=== PATIENT | female | born 1975 | race Caucasian/White ===

== ENCOUNTER 2020-03-24 15:00 | Outpatient (CLI) | payer OTHER, SELFPAY ==
[2020-03-24 16:12] LABS: Thyroid Stimulating Hormone 2.14 uIU/mL (0.27-4.20)
== END 2020-03-24 15:01 | disposition home or self-care (01) ==
LOC: LAB 15:04
PROVIDERS: PCP Nurse Practitioner; Visit Provider Internal Medicine Cardiovascular Disease
DX: R00.2 Palpitations (principal)
CPT/HCPCS: 84443

== ENCOUNTER 2020-04-20 11:36 | Outpatient (CLI) | payer OTHER, SELFPAY ==
--- NOTE | 2020-04-20 11:43 | MM_ITS ---
WS: [id number] LEFT DIGITAL MAMMOGRAPHY WITH CAD CLINICAL INFORMATION: LT BREAST LUM No definite lump felt today. Pain and soreness left breast with itching COMPARISON: 12 17,019 and 6 20,016 TECHNIQUE: 8 views of the left breast were obtained. FINDINGS: Breast implants. The left breast is composed of heterogeneous fibroglandular density tissue, which can limit the detec tion of small underlying mass lesions. Palpable marker at the areola. Dense underlying breast tissue at the 12:00 position similar to the prior examinations. No well-circumscribed abnormalities. Ultraso und is pending. ULTRASOUND BREAST LEFT TECHNIQUE: Ultrasound left breast focused area of concern. CLINICAL INFORMATION: LT BREAST LUMP COMPARISON: None. FINDINGS: Ultrasound left breast at the 12:00 position left areola. A few hypoechoic subcentimeter cystic appea ring lesions a few with internal debris calcifications. Largest measure approximately 3 mm findings a re probably benign and Recommend 6 month follow-up to confirm stability. MM/[place] [id number] IMPRESSION: BI-RADS: 3-Probably Benign FOLLOW UP: 6 Month Follow-up RECOMMEND 6 MONTH FOLLOW-UP LEFT DIAGNOSTIC MAMMOGRAPHY AND ULTRASOUND..
--- NOTE | 2020-04-20 12:17 | US_ITS ---
WS: [id number] LEFT DIGITAL MAMMOGRAPHY WITH CAD CLINICAL INFORMATION: LT BREAST LUM No definite lump felt today. Pain and soreness left breast with itching COMPARISON: 12 17,019 and 6 20,016 TECHNIQUE: 8 views of the left breast were obtained. FINDINGS: Breast implants. The left breast is composed of heterogeneous fibroglandular density tissue, which can limit the detec tion of small underlying mass lesions. Palpable marker at the areola. Dense underlying breast tissue at the 12:00 position similar to the prior examinations. No well-circumscribed abnormalities. Ultraso und is pending. ULTRASOUND BREAST LEFT TECHNIQUE: Ultrasound left breast focused area of concern. CLINICAL INFORMATION: LT BREAST LUMP COMPARISON: None. FINDINGS: Ultrasound left breast at the 12:00 position left areola. A few hypoechoic subcentimeter cystic appea ring lesions a few with internal debris calcifications. Largest measure approximately 3 mm findings a re probably benign and Recommend 6 month follow-up to confirm stability. US/US breast LT limited* [id number] IMPRESSION: BI-RADS: 3-Probably Benign FOLLOW UP: 6 Month Follow-up RECOMMEND 6 MONTH FOLLOW-UP LEFT DIAGNOSTIC MAMMOGRAPHY AND ULTRASOUND..
== END 2020-04-20 11:37 | disposition home or self-care (01) ==
LOC: RADSHAW 11:39
PROVIDERS: PCP Nurse Practitioner; Visit Provider Nurse Practitioner
DX: N63.25 Unspecified lump in the left breast, overlapping quadrants (principal)
CPT/HCPCS: 76642; 77065

== ENCOUNTER 2020-04-20 11:42 | Outpatient (CLI) | payer OTHER, SELFPAY ==
--- NOTE | 2020-04-20 12:45 | USCV_ITS ---
Tara Singh Age: 44 Gender: F : 1975 Exam Date: 04/20/2020 12:39 Ordering Phys: Malika Velez MD ([email or web address]) Technologist: Aye Laws Exam Location: [facility] [place] Indication: LVOT/PASP/DIASTOLIC DYSFUNCTION BP: 110 / 73 HR: 64 Rhythm: Sinus Technical Quality: artifact due to implants MEASUREMENTS (Male / Female) Normal Values 2D ECHO LV Diastolic Diameter PLAX 3.8 cm 4.2 - 5.9 / 3.9 - 5.3 cm LV Systolic Diameter PLAX 2.3 cm LV Chamber Size 2.9 cm IVS Diastolic Thickness 1.1 cm 0.6 - 1.0 / 0.6 - 0.9 cm IVS Systolic Thickness 1.5 cm LVPW Diastolic Thickness 1.3 cm 0.6 - 1.0 / 0.6 - 0.9 cm LVPW Systolic Thickness 2.1 cm RV Chamber Size 2.4 cm LVOT Diameter 2.0 cm LV Ejection Fraction 2D Teich 71.8 % LV Ejection Fraction MOD 2C 70.8 % LV Ejection Fraction 2C AL 70.8 % LA Diameter 4.0 cm LA Width 3.1 cm LA Height 3.3 cm RA Width 2.4 cm RA Height 2.9 cm Aorta at Sinotubular Diameter 2.5 cm M-MODE LV Diastolic Diameter MM 3.6 cm 4.2 - 5.9 / 3.9 - 5.3 cm LV Systolic Diameter MM 2.6 cm LV Ejection Fraction MM Teich 52.7 % IVS Diastolic Thickness MM 0.9 cm 0.6 - 1.0 / 0.6 - 0.9 cm IVS Systolic Thickness MM 1.0 cm LVPW Diastolic Thickness MM 0.9 cm 0.6 - 1.0 / 0.6 - 0.9 cm LVPW Systolic Thickness MM 1.1 cm Aortic Annulus Diameter 2.2 cm LA Ao Ratio MM 1.8 MV E Point Septal Separation 0.3 cm DOPPLER AV Peak Velocity 114.0 cm/s LVOT Peak Velocity 81.0 cm/s AV Area Cont Eq vti 2.4 cm squared AV Area Cont Eq pk 2.3 cm squared MV Area PHT 3.9 cm squared Mitral E to A Ratio 1.7 MV E' Velocity 14.0 cm/s Mitral E to MV E' Ratio 5.1 Mitral E to LV E' Lateral Ratio 5.2 Mitral E to LV E' Septal Ratio 5.0 TR Peak Velocity 260.0 cm/s TR Peak Gradient 27.0 mmHg TV Peak E Velocity 51.0 cm/s Right Atrial Pressure 3.0 mmHg Pulmonary Artery Systolic Pressu 30.0 mmHg PV Peak Velocity 83.0 cm/s RV Acceleration Time 0.2 s RV Ejection Time 0.4 s RV AcT/ET 0.4 FINDINGS Left Ventricle Normal left ventricular size, systolic function and wall thickness, no regional wall motion abnormalities. Left ventricular ejection fraction is estimated at 60 %. Normal diastolic filling pattern. Right Ventricle The right ventricle is normal in size and function. Right Atrium The right atrium is normal in size. Left Atrium The left atrium is normal in size. Mitral Valve Structurally normal mitral valve without significant stenosis or prolapse. There is no mitral regurgitation. Aortic Valve Structurally normal aortic valve without significant sclerosis or stenosis. There is no aortic regurgitation. Tricuspid Valve Structurally normal tricuspid valve without significant stenosis or regurgitation. Pulmonary artery systolic pressure is normal. Pulmonic Valve Structurally normal pulmonic valve without significant stenosis. There is no pulmonic regurgitation. Pericardium Normal pericardium without effusion. Aorta Normal ascending aorta dimension. CONCLUSIONS 1-Normal left ventricular size, systolic function and wall thickness, no regional wall motion abnormalities. Left ventricular ejection fraction is estimated at 60 %. Normal diastolic filling pattern. 2-No significant valve abnormalities. 3-There is no pericardial effusion. 4-Pulmonary artery systolic pressure is within normal limits. 5-Right atrial pressure is around 5 mm of mercury. 6-There are no prior echocardiogram studies to compare. Malika Velez MD (Electronically Signed) Final Date: 20 April 2020 17:13 S
== END 2020-04-20 11:43 | disposition home or self-care (01) ==
LOC: RAD 11:43
PROVIDERS: PCP Nurse Practitioner; Visit Provider Internal Medicine Cardiovascular Disease
DX: I51.81 Takotsubo syndrome (principal)
CPT/HCPCS: 93306

== ENCOUNTER 2020-11-17 11:42 | Outpatient (CLI) | payer OTHER, SELFPAY ==
--- NOTE | 2020-11-17 11:51 | US_ITS ---
WS: [id number] BILATERAL DIGITAL DIAGNOSTIC MAMMOGRAM MAMMOGRAPHY WITH CAD CLINICAL INFORMATION: LT CYSTIC APPEARING LESIONS HISTORY: Six-month follow-up. COMPARISON: April 20, 2020 TECHNIQUE: Bilateral CC, MLO, and ML views. FINDINGS: The breasts are composed of heterogeneous fibroglandular density, which can limit the detection of sm all underlying mass lesions. Bilateral breast implants appear intact. Dense underlying breast tissue the 12:00 position left breast similar to the prior examination. Ultrasound is pending. Right breast is unremarkable and unchanged. ULTRASOUND BREAST LEFT TECHNIQUE: Ultrasound left breast focused area of concern. CLINICAL INFORMATION: LT CYSTIC APPEARING LESIONS COMPARISON: April 20, 2020 FINDINGS: Ultrasound left breast at the 12:00 position at the areola. Hypoechoic cystic lesion with some application development intern al debris measuring 3.5 x 2.9 x 4.3 mm in the area of concern. This is similar in appearance to the p rior examination April 20, 2020 likely represents ductal ectasia or small cyst. This has a benign appearance. Other previously described small cysts have resolved. Recommend return to annual screeni ng mammography. No suspicious lesions. US/US breast LT limited* [id number] IMPRESSION: BI-RADS: 2-Benign FOLLOW UP: 1 Year Follow-up Recommend return to annual screening mammography.
== END 2020-11-17 11:43 | disposition home or self-care (01) ==
LOC: RADSHAW 11:47
PROVIDERS: PCP Nurse Practitioner; Visit Provider Nurse Practitioner
DX: N64.89 Other specified disorders of breast (principal)
CPT/HCPCS: 76642; 77066

== ENCOUNTER 2021-05-24 08:48 | Outpatient (CLI) | payer OTHER, SELFPAY ==
--- NOTE | 2021-05-24 08:52 | XR_ITS ---
WS: [id number] Exam: XR chest 2V* [id number] Date/Time of Exam: 05/24/2021 8:52 AM Reason For Exam: Shortness of breath No priors. The lungs are clear and fully expanded. Normal cardiomediastinal structures. No pleural effusions. Mi ld dextroscoliosis at the thoracolumbar junction. Increased thoracic kyphosis. Scattered calcified gr anulomas in both lungs. XR/XR chest 2V* [id number] IMPRESSION: 1. No acute cardiopulmonary finding.
== END 2021-05-24 08:49 | disposition home or self-care (01) ==
LOC: RAD 08:50
PROVIDERS: PCP Nurse Practitioner; Visit Provider Internal Medicine Critical Care Medicine
DX: R06.02 Shortness of breath (principal)
CPT/HCPCS: 71046

== ENCOUNTER → 2021-09-15 00:01 | Outpatient (BNVA) | payer OTHER, SELFPAY | PROVIDERS: PCP Nurse Practitioner | DX: R06.02 Shortness of breath (principal); Z20.822 Contact with and (suspected) exposure to COVID-19 | CPT/HCPCS: 87635 ==

== ENCOUNTER 2021-09-20 10:25 | Outpatient (CLI) | payer OTHER, SELFPAY ==
--- NOTE | 2021-09-20 13:41 | PFTS_ITS ---
Date of Study:09/20/21 Date of Dictation: MECHANICS: Forced vital capacity (FVC) is normal. Forced expiratory volume in one second (FEV1) is normal. FEV1/FVC is normal. FLOW VOLUME LOOP: Normal. LUNG VOLUMES: Total lung capacity (TLC) is normal. Residual volume (RV) is mildly reduced. DIFFUSING CAPACITY FOR CARBON MONOXIDE: Not measured. INTERPRETATION: The postbronchodilator spirometry is normal. There is no significant postbronchodilator response. Total lung capacity is normal. There is minimal nonspecific reduction in residual volume. Gas exchange (DLCO) was not measured. MTDD
== END 2021-09-20 10:26 | disposition home or self-care (01) ==
LOC: RT 10:26
PROVIDERS: PCP Nurse Practitioner; Visit Provider Internal Medicine Critical Care Medicine
DX: R06.02 Shortness of breath (principal)
CPT/HCPCS: 94060; 94726; 94729; J7611

== ENCOUNTER 2022-02-02 15:25 | Outpatient (CLI) | payer OTHER, SELFPAY ==
--- NOTE | 2022-02-02 15:31 | MM_ITS ---
WS: [id number] BILATERAL 3D TOMOSYNTHESIS DIGITAL SCREENING MAMMOGRAPHY WITH CAD CLINICAL INFORMATION: SCREENING HISTORY: Screening mammogram. No current complaints. COMPARISON: November 17, 2020 TECHNIQUE: Bilateral CC and MLO views. FINDINGS: Stable bilateral breast implants. Scattered fibroglandular densities bilaterally. A few incidental punctate calcifications bilaterally. No suspicious focal mass, asymmetry, calcifications, or architectural distortion. No evidence of mal ignancy. MM/[place] [id number] IMPRESSION: BI-RADS: 2-Benign FOLLOW UP: 1 Year Follow-up Recommend return to annual screening mammography.
== END 2022-02-02 15:26 | disposition home or self-care (01) ==
LOC: RAD 15:27
PROVIDERS: PCP Nurse Practitioner; Visit Provider Nurse Practitioner Family
DX: Z12.31 Encounter for screening mammogram for malignant neoplasm of breast (principal)
CPT/HCPCS: 77063; 77067

== ENCOUNTER 2023-02-27 08:21 | Outpatient (CLI) | payer OTHER, SELFPAY ==
--- NOTE | 2023-02-27 08:34 | MM_ITS ---
WS: [id number] BILATERAL 3D TOMOSYNTHESIS DIGITAL SCREENING MAMMOGRAPHY WITH CAD CLINICAL INFORMATION: SCREENING HISTORY: Screening mammogram. No current complaints. COMPARISON: 2020 TECHNIQUE: Bilateral CC and MLO views. FINDINGS: Bilateral breast implants appear intact. Scattered fibroglandular densities bilaterally. No suspicious focal mass, asymmetry, calcifications, or architectural distortion. No evidence of malignancy. Incidental punctate calcifications. MM/[place] [id number] IMPRESSION: BI-RADS: 2-Benign FOLLOW UP: 1 Year Follow-up Recommend return to annual screening mammography.
== END 2023-02-27 08:22 | disposition home or self-care (01) ==
PROVIDERS: PCP Nurse Practitioner Family; Visit Provider Nurse Practitioner Family
DX: Z12.31 Encounter for screening mammogram for malignant neoplasm of breast (principal)
CPT/HCPCS: 77063; 77067

== ENCOUNTER 2023-10-23 09:25 | Outpatient (CLI) | payer OTHER, SELFPAY ==
--- NOTE | 2023-10-23 | ECG_ITS ---
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 Interpretive Statements NAME OF STUDY: EXERCISE SESTAMIBI STRESS TEST INDICATION: [CP/SOB, ] EXERCISE DATA: The patient was exercised by Brendan protocol. Baseline heart rate was 76 beats per minute. Baseline blood pressure was 116/80 millimeters of mercury. Maximal predicted heart rate was 171 beats per minute. Maximum heart rate achieved was 173 which was 101% of the maximum predicted heart rate. Maximum blood pressure was 145/77 millimeters of mercury. Total exercise time was 7 minutes and 1 second. Maximum METs achieved was 10.2. The reason for ending the test was completion of protocol. The patient complained of shortness of breath during the stress test, which then resolved at the end of the test. ELECTROCARDIOGRAM: BASELINE: Showed sinus rhythm, normal axis, no significant ST-T changes at the baseline noted. [] EXERCISE: At the peak exercise level, [] No significant ST-T changes suggestive of ischemia noted. [] RECOVERY: During the recovery period, heart rate dropped appropriately. No significant ST-T changes in the recovery suggestive of ischemia noted. [] CONCLUSION: 1. Exercise capacity is good 2. Heart rate response was appropriate. 3. Blood pressure response was appropriate. 4. Symptoms not suggestive of ischemia. 5. Electrocardiogram portion of the stress test was not suggestive of ischemia. 6. Nuclear scan will be documented separately. Electronically Signed On 11-01-2023 12:11:49 CDT by Ren Camejo M.D. [email or web address]
[2023-10-23 09:27] VITALS: BMI 29.9
--- NOTE | 2023-10-23 09:28 | NMCV_ITS ---
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 Images obtained in supine and prone position. SPECT RESULTS Technical Quality: Excellent Raw Data Analysis: Normal Image Corrections: No attenuation or motion correction applied Summed Stress Score: 1 Summed Rest Score: 0 Summed Difference Score: 1 PERFUSION FINDINGS SPECT images demonstrate homogeneous tracer distribution throughout the myocardium. FUNCTIONAL RESULTS (calculated via Gated SPECT) Stress Image LV EF (%): 90 Stress EDV (mL):59 TID: 1 Stress ESV (mL):6 FUNCTIONAL FINDINGS: There is normal left ventricular systolic function. IMPRESSIONS 1. Normal myocardial perfusion imaging with no evidence of ischemia 2. LV systolic function is normal Ren Camejo MD (Electronically Signed) Final Date: 23 October 2023 12:22 S
[2023-10-23 11:37] VITALS: BP 139/78; PULSE 99
== END 2023-10-23 09:26 | disposition home or self-care (01) ==
PROVIDERS: PCP Nurse Practitioner Family; Visit Provider Nurse Practitioner Family
DX: R07.9 Chest pain, unspecified (principal); R06.02 Shortness of breath
CPT/HCPCS: 36415; 78452; 93017; A9500